=== PATIENT | female | born 1980 | race Caucasian/White ===

== ENCOUNTER 2016-12-19 15:14 | Inpatient (IN) | payer MEDICAID ==
--- NOTE | 2016-12-19 15:41 | C.PDOC ---
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 PS NONCOMPLIANT W SZ MEDS X 1 MO, SUPPOSED TO BE ON KEPPRA 400 MG BID. FORMERLY ON DILANTIN. PS " I WANTED TO SEE IF I COULD DO OK WITHOUT IT". CO GEN MUSCLE PAIN "FROM WHEN I WAS TENSE DURING THE SZ", JOSÉ. NO NV, INJURY EXAM NONTOXIC NAD HEENT ATRAUM NEURO NO ACTIVE SZ, AO3, NO FOCAL DEF REMAINDER NEG Time Seen by Provider: 12/19/16 15:37 Chief Complaint (Nursing): Seizure History Per: Patient History/Exam Limitations: no limitations Recent Seizure Activity Began: Just Before Arrival Number Of Seizures: Multiple Recent travel outside of the [place]: No Past Medical History Reviewed: Historical Data, Nursing Documentation, Vital Signs Vital Signs: Last Vital Signs Temp 97.9 F 12/19/16 15:17 Pulse 76 12/19/16 17:40 Resp 17 12/19/16 17:40 BP 126/59 L 12/19/16 17:40 Pulse Ox 100 12/19/16 17:40 - Medical History PMH: Asthma, Seizures Family History: States: Unknown Family Hx - Social History Hx Alcohol Use: No Hx Substance Use: No Review Of Systems Except As Marked, All Systems Reviewed And Found Negative. Constitutional: Positive for: Other (GENERALIZED MUSCLE PAINS). Negative for: Fever, Chills Cardiovascular: Negative for: Chest Pain, Palpitations Respiratory: Negative for: Cough, Shortness of Breath, Wheezing Gastrointestinal: Negative for: Nausea, Vomiting, Abdominal Pain Skin: Negative for: Rash Neurological: Positive for: Headache Physical Exam - Physical Exam Appears: Non-toxic, No Acute Distress Skin: Normal Color, Warm, Dry Head: Atraumatic, Normacephalic Eye(s): bilateral: Normal Inspection, PERRL, EOMI Oral Mucosa: Moist Chest: Symmetrical Cardiovascular: Rhythm Regular Respiratory: Normal Breath Sounds, No Rales, No Rhonchi, No Wheezing Gastrointestinal/Abdominal: Soft, No Tenderness, No Guarding, No Rebound Back: Normal Inspection Extremity: Normal ROM, Capillary Refill (< 2 SEC.) Neurological/Psych: Other (NO ACTIVE SZ, AO3, NO FOCAL DEF) ED Course And Treatment - Laboratory Results Result Diagrams: 12/19/16 17:01 12/19/16 17:01 O2 Sat by Pulse Oximetry: 98 (RA) Pulse Ox Interpretation: Normal Progress - Re-Evaluation Re-evaluation Note: 12/19/16 15:44 TYLENOL, KEPPRA, TORADOL, ATIVAN 12/19/16 16:57 RECUR SZ <30 SECS. VSS NOW POSTICTAL. REPEAT ATIVAN GIVEN 12/19/16 17:43 APPEARS COMFORTABLE NAD VSS. 12/19/16 19:[address] MARLEY DE ANDA DISPO - Data Reviewed Data Reviewed: Old records Disposition - Disposition Disposition Time: 19:00 Condition: STABLE Forms: [employer] (Arabic) - Clinical Impression Clinical Impression: Breakthrough seizure - Scribe Statement The provider has reviewed the documentation as recorded by the Scribe SM All medical record entries made by the Scribe were at my direction and personally dictated by me. I have reviewed the chart and agree that the record accurately reflects my personal performance of the history, physical exam, medical decision making, and the department course for this patient. I have also personally directed, reviewed, and agree with the discharge instructions and disposition.
[2016-12-19 17:06] LABS: BASO % 0.3 % (0.0-2.0); EOS # 0.1 K/uL (0.0-0.7); EOS % 0.7 % (0.0-4.0); HEMATOCRIT 28.2 % (34.0-47.0); LYMPH # 2.6 K/uL (1.0-4.3); LYMPH % 36.5 % (20.0-40.0); MEAN CELL VOLUME 68.8 fL (81.0-99.0); MEAN CORPUSCULAR HEMOGLOBIN 21.8 pg (27.0-31.0); MEAN CORPUSCULAR HGB CONC 31.7 g/dL (33.0-37.0); MEAN PLATELET VOLUME 9.7 fL (7.2-11.7); MONO # 0.5 K/uL (0.0-0.8); RED CELL DISTRIBUTION WIDTH 19.5 % (11.5-14.5); WHITE BLOOD COUNT 7.3 K/uL (4.8-10.8)
[2016-12-19 17:13] LABS: CHLORIDE 101 mmol/L (98-107); POTASSIUM 3.2 mmol/L (3.6-5.2); SODIUM 137 mmol/L (132-148)
[2016-12-19 17:16] LABS: BLOOD UREA NITROGEN 10 mg/dL (7-17); CARBON DIOXIDE 25 mmol/L (22-30); GFR AFRICAN-AMERICAN > 60; GLUCOSE,RANDOM 107 mg/dL (65-105)
[2016-12-19 17:17] LABS: CALCIUM 8.9 mg/dl (8.6-10.4)
[2016-12-19] MEDS ORDERED: Fosphenytoin 1,000 MG in Sodium Chloride 0.9% 50 ML IV STA (19:10)
[2016-12-19 22:39] LABS: RBC URINE 1 /hpf (0-3); URINE BILIRUBIN NEGATIVE (NEGATIVE); URINE BLOOD NEGATIVE (NEGATIVE); URINE COLOR Straw (YELLOW); URINE GLUCOSE (UA) NORMAL (Normal); URINE KETONE NEGATIVE (NEGATIVE); URINE LEUKOCYTE ESTERASE NEG Leu/uL (Negative); URINE PROTEIN NEGATIVE (NEGATIVE); URINE UROBILINOGEN NORMAL mg/dL (0.2-1.0); WBC URINE 2 /hpf (0-5)
[2016-12-19] MEDS: Sodium Chloride 0.9% 1,000 ML IV SCH (23:53)
[2016-12-20] MEDS ORDERED: Sodium Chloride 0.9% 1,000 ML IV SCH (06:00)
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
[2016-12-20 06:49] LABS: CHLORIDE 108 mmol/L (98-107); SODIUM 139 mmol/L (132-148)
[2016-12-20 06:50] LABS: POTASSIUM 3.3 mmol/L (3.6-5.2)
[2016-12-20 06:51] LABS: BILIRUBIN,TOTAL 0.5 mg/dL (0.2-1.3); GFR AFRICAN-AMERICAN > 60
[2016-12-20 06:52] LABS: ALB/GLOB RATIO 0.9 (1.0-2.1); ALKALINE PHOSPHATASE 54 U/L (38-126); ALT/SGPT 36 U/L (9-52); AST/SGOT 22 U/L (14-36); BLOOD UREA NITROGEN 6 mg/dL (7-17); CALCIUM 7.5 mg/dl (8.6-10.4); CARBON DIOXIDE 19 mmol/L (22-30); GLUCOSE,RANDOM 76 mg/dL (65-105); PHOSPHOROUS 3.6 mg/dL (2.5-4.5); TOTAL PROTEIN 6.7 g/dL (6.3-8.3)
[2016-12-20 06:53] LABS: MAGNESIUM 1.5 mg/dL (1.6-2.3)
[2016-12-20 06:56] LABS: BASO % 0.3 % (0.0-2.0); EOS # 0.1 K/uL (0.0-0.7); EOS % 0.9 % (0.0-4.0); HEMATOCRIT 28.2 % (34.0-47.0); LYMPH # 2.6 K/uL (1.0-4.3); LYMPH % 36.3 % (20.0-40.0); MEAN CELL VOLUME 68.9 fL (81.0-99.0); MEAN CORPUSCULAR HEMOGLOBIN 22.3 pg (27.0-31.0); MEAN CORPUSCULAR HGB CONC 32.3 g/dL (33.0-37.0); MEAN PLATELET VOLUME 9.5 fL (7.2-11.7); MONO # 0.4 K/uL (0.0-0.8); MONO % 5.2 % (0.0-10.0); NRBC % 0.1 % (0.0-2.0); RED CELL DISTRIBUTION WIDTH 19.8 % (11.5-14.5)
[2016-12-20] MEDS ORDERED: Potassium Chloride 20 mEq ER Tab PO ONE (09:45)
[2016-12-20] MEDS: Magnesium Sulfate 1 gm in D5W 1 GM/100 ML BAG IVPB SCH ×2 (09:51→10:40)
[2016-12-20] MEDS: Sodium Chloride 0.9% 1,000 ML IV SCH ×2 (09:54→11:57)
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
[2016-12-21 06:21] LABS: BASO % 0.2 % (0.0-2.0); EOS # 0.1 K/uL (0.0-0.7); EOS % 1.4 % (0.0-4.0); HEMATOCRIT 28.5 % (34.0-47.0); LYMPH # 2.3 K/uL (1.0-4.3); LYMPH % 27.1 % (20.0-40.0); MEAN CELL VOLUME 69.5 fL (81.0-99.0); MEAN CORPUSCULAR HEMOGLOBIN 22.8 pg (27.0-31.0); MEAN CORPUSCULAR HGB CONC 32.8 g/dL (33.0-37.0); MEAN PLATELET VOLUME 8.8 fL (7.2-11.7); MONO # 0.6 K/uL (0.0-0.8); MONO % 6.8 % (0.0-10.0); NRBC % 0.1 % (0.0-2.0); RED CELL DISTRIBUTION WIDTH 19.5 % (11.5-14.5); WHITE BLOOD COUNT 8.6 K/uL (4.8-10.8)
[2016-12-21 06:35] LABS: CHLORIDE 101 mmol/L (98-107); POTASSIUM 3.9 mmol/L (3.6-5.2); SODIUM 138 mmol/L (132-148)
[2016-12-21 06:37] LABS: ALB/GLOB RATIO 0.8 (1.0-2.1); ALKALINE PHOSPHATASE 64 U/L (38-126); ALT/SGPT 33 U/L (9-52); AST/SGOT 19 U/L (14-36); BILIRUBIN,TOTAL 0.3 mg/dL (0.2-1.3); BLOOD UREA NITROGEN 8 mg/dL (7-17); CARBON DIOXIDE 25 mmol/L (22-30); GFR AFRICAN-AMERICAN > 60; TOTAL PROTEIN 7.2 g/dL (6.3-8.3)
[2016-12-21 06:38] LABS: CALCIUM 8.8 mg/dl (8.6-10.4); GLUCOSE,RANDOM 102 mg/dL (65-105); MAGNESIUM 1.6 mg/dL (1.6-2.3); PHOSPHOROUS 4.4 mg/dL (2.5-4.5)
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
[2016-12-21] MEDS ORDERED: Gadodiamide 287 mg/ml 20 ml IV ONE (14:30)
--- NOTE | 2016-12-21 15:20 | MRI ---
PROCEDURE: MRI BRAIN WITH AND WITHOUT CONTRAST HISTORY: Seizure COMPARISON: None. TECHNIQUE: Multiplanar, multisequence MR images of the brain were obtained with and without intravenous contrast enhancement. High-resolution T2 coronal sequence of the temporal lobes was obtained. FINDINGS: HEMORRHAGE: None DWI: No evidence of an acute or early subacute infarction. BRAIN PARENCHYMA: Fortune-white matter differentiation is preserved. There is no mass, mass effect or abnormal extra-axial fluid collection. There is no territorial infarction. There is a partially empty sella. cerebellar tonsils herniate 5 mm below foramina magnum and are pointed and peg shaped. The hippocampi are symmetric, have normal architecture and intrinsic signal. No evidence of mesial temporal sclerosis. ENHANCEMENT: No abnormal intracranial enhancement. VENTRICLES: The ventricles are normal in size, shape and configuration. CRANIUM: There is normal bone marrow signal pattern. ORBITS: Within normal limits. PARANASAL SINUSES/MASTOIDS: Predominantly clear. VASCULAR SYSTEM: There are normal signal voids in the larger intracranial arteries. OTHER FINDINGS: None . IMPRESSION: 1. No acute intracranial abnormality. Specifically, no evidence of mesial temporal sclerosis. 2. Chiari 1 malformation.
--- NOTE | 2016-12-21 18:35 | CP.PCM.PN ---
Subjective - Date & Time of Evaluation Date of Evaluation: 12/21/16 Time of Evaluation: 18:32 - Subjective Subjective: Mrs. Yoo was seen and examined today at bedside in the ICU. She has not had any seizures since being on the new dose of Keppra and starting Topamax. She had no complaints and was in NAD. Objective - Vital Signs/Intake and Output Vital Signs (last 24 hours): Temp Pulse Resp BP Pulse Ox 98.4 F 69 18 112/63 95 12/21/16 16:00 12/21/16 16:00 12/21/16 16:00 12/21/16 16:00 12/21/16 12:00 Intake and Output: 12/21/16 12/21/16 06:59 18:59 Intake Total 460 420 Output Total 2000 350 Balance -1540 70 - Medications Medications: Current Medications Acetaminophen (Tylenol 325mg Tab) 650 mg PO Q6 PRN PRN Reason: Pain, Mild (1-3) Last Admin: 12/20/16 08:40 Dose: 650 mg Famotidine (Pepcid) 20 mg PO DAILY [facility] Last Admin: 12/21/16 09:32 Dose: 20 mg Levetiracetam 750 mg/ Sodium (Chloride) 107.5 mls @ 420 mls/hr IVPB Q12H [facility] Last Admin: 12/21/16 16:38 Dose: 420 mls/hr Topiramate (Topamax) 25 mg PO BID [facility] Last Admin: 12/21/16 17:41 Dose: 25 mg - Labs Labs: 12/21/16 06:16 12/21/16 06:16 - Neurological Exam Neurological Exam: Alert, Awake, CN II-XII Intact, Normal Gait, Oriented x3 Neuro motor strength exam: Left Upper Extremity: 5, Right Upper Extremity: 5, Left Lower Extremity: 5, Right Lower Extremity: 5 Assessment and Plan (1) Breakthrough seizure Assessment & Plan: Continue Keppra 750 mg BID and Topamax 25 mg BID and transfer to general medical floor. If she does not have any events overnight, then she is cleared form a neurological standpoint to follow up with outpatient neurology for titration of Topamax. Status: Acute
--- NOTE | 2016-12-21 23:51 | CP.PCM.PN ---
Subjective - Date & Time of Evaluation Date of Evaluation: 12/21/16 - Subjective Subjective: NO SEIZURE SINCE YESTERDAY Objective - Vital Signs/Intake and Output Vital Signs (last 24 hours): Temp Pulse Resp BP Pulse Ox 98.4 F 70 20 108/46 L 95 12/21/16 20:00 12/21/16 20:00 12/21/16 20:00 12/21/16 23:28 12/21/16 12:00 Intake and Output: 12/21/16 12/22/16 18:59 06:59 Intake Total 420 Output Total 350 Balance 70 - Medications Medications: Current Medications Acetaminophen (Tylenol 325mg Tab) 650 mg PO Q6 PRN PRN Reason: Pain, Mild (1-3) Last Admin: 12/20/16 08:40 Dose: 650 mg Famotidine (Pepcid) 20 mg PO DAILY [facility] Last Admin: 12/21/16 09:32 Dose: 20 mg Levetiracetam 750 mg/ Sodium (Chloride) 107.5 mls @ 420 mls/hr IVPB Q12H [facility] Last Admin: 12/21/16 16:38 Dose: 420 mls/hr Topiramate (Topamax) 25 mg PO BID [facility] Last Admin: 12/21/16 17:41 Dose: 25 mg - Labs Labs: 12/21/16 06:16 12/21/16 06:16 - Constitutional Appears: Non-toxic, No Acute Distress - Head Exam Head Exam: ATRAUMATIC, NORMAL INSPECTION, NORMOCEPHALIC - Eye Exam Eye Exam: EOMI, Normal appearance - Neurological Exam Neurological Exam: Alert, Awake, CN II-XII Intact, Normal Gait, Oriented x3 Neuro motor strength exam: Left Upper Extremity: 5, Right Upper Extremity: 5, Left Lower Extremity: 5, Right Lower Extremity: 5 - Psychiatric Exam Psychiatric exam: Normal Mood Assessment and Plan (1) Intractable seizures Status: Acute
[2016-12-22 07:59] VITALS: BP 110/58; PULSE 67; RESP 20; TEMP 97.8; O2SAT 97
--- NOTE | 2016-12-22 15:22 | CP.PCM.PN ---
Subjective - Date & Time of Evaluation Date of Evaluation: 12/22/16 Time of Evaluation: 15:22 - Subjective Subjective: alert, awake, NAD. Objective - Vital Signs/Intake and Output Vital Signs (last 24 hours): Temp Pulse Resp BP Pulse Ox 97.8 F 67 20 110/58 L 97 12/22/16 07:58 12/22/16 07:58 12/22/16 07:58 12/22/16 07:58 12/22/16 07:58 Intake and Output: 12/22/16 12/22/16 06:59 18:59 Intake Total 450 Balance 450 - Medications Medications: Current Medications Acetaminophen (Tylenol 325mg Tab) 650 mg PO Q6 PRN PRN Reason: Pain, Mild (1-3) Last Admin: 12/22/16 12:32 Dose: 650 mg Famotidine (Pepcid) 20 mg PO DAILY [facility] Last Admin: 12/22/16 09:56 Dose: 20 mg Levetiracetam 750 mg/ Sodium (Chloride) 107.5 mls @ 420 mls/hr IVPB Q12H [facility] Last Admin: 12/22/16 05:59 Dose: 420 mls/hr Topiramate (Topamax) 25 mg PO BID [facility] Last Admin: 12/22/16 09:56 Dose: 25 mg - Labs Labs: 12/21/16 06:16 12/21/16 06:16 Assessment and Plan - Assessment and Plan (Free Text) Assessment: Patient is seen and examined. Alert and orientedx3, denies complaints of pain or seizures. D/W DR Ferris, discharge plan for home today. Cleared by neurologyst. Advised to follow up with PMD in 1 week.
--- NOTE | 2017-01-17 17:16 | PCM.EEG ---
Electroencephalogram Report - Electroencephalogram Report Procedure Date: 12/20/16 Interpretation: Indication: Multiple witnessed seizures. Medications were reviewed. This was an awake and drowsy EEG. Technical: This is a digitally recorded electroencephalogram. The international 10-20 electrode placement system is used for scalp electrode placement. Eighteen channels of scalp EEG are recorded One channel was used for EOG. Another channel was used for for ECG. The data are stored digitally and reviewed in reformatted montages for optimal display. Background: 9 to 10 hertz alpha activity was seen. Maximal over the posterior head region. These activities are symmetric on both sides. They attenuated with eye opening. Small amount of beta activities are seen. There was a significant amount of EMG artifact noted due to movement. Impression: Description: Patient entered into periods of drowsiness and light sleep. Focal abnormality: Mainly over the Left temporal area. There were two generalized seizures noted. These likely originated form the left temporal lobe. Impression: This EEG is abnormal. Clinical correlation is needed. The patient had epileptiform discharges as well as two generalized seizures.
== END 2016-12-22 16:44 | disposition home or self-care (01) | DRG 889 ==
LOC: C.ER 15:14 → C.9E 21:19 → C.9I 23:01 → C.3T 12-22 06:46
PROVIDERS: ADMIT Internal Medicine; ATTEND Internal Medicine
DX: G40.419 Other generalized epilepsy and epileptic syndromes, intractable, without status epilepticus (principal); E87.6 Hypokalemia; F31.9 Bipolar disorder, unspecified; J45.909 Unspecified asthma, uncomplicated; K59.00 Constipation, unspecified; Z90.49 Acquired absence of other specified parts of digestive tract; Z91.14 Patient's other noncompliance with medication regimen